=== PATIENT | female | born 1990 | race Caucasian/White ===

== ENCOUNTER 2021-08-04 19:56 | Emergency (ER) | payer OTHER ==
[~2021-08-04 19:56] MED LIST: BACTRIM DS TAB1 EACH PO; CEPHALEXIN500 M1 PO; IBUPROFEN800 MG PO
[2021-08-04 20:52] LABS: HEMOGLOBIN 13.7 gm/dl (12.3-15.3); RED BLOOD COUNT 4.96 M/UL (4.00-5.10); WHITE BLOOD COUNT 14.9 K/UL (4.5-11.0)
[2021-08-04 21:16] LABS: BUN/CREATININE RATIO 8 (0-10)
== END 2021-08-05 00:20 | disposition home or self-care (01) ==
LOC: ER1 19:56
PROVIDERS: Nurse Practitioner
DX: L02.01 Cutaneous abscess of face (principal); R00.0 Tachycardia, unspecified; F17.290 Nicotine dependence, other tobacco product, uncomplicated; Z88.0 Allergy status to penicillin
CPT/HCPCS: 10060; 80053; 85025; 87070; 87077; 87186; 87205; 96374; 99283; J1885

== ENCOUNTER 2021-08-06 18:10 | Emergency (ER) | payer OTHER | END 2021-08-06 19:10 | disposition home or self-care (01) | LOC: ER1 18:10 | DX: Z48.817 Encounter for surgical aftercare following surgery on the skin and subcutaneous tissue (principal); F17.200 Nicotine dependence, unspecified, uncomplicated; Z88.0 Allergy status to penicillin | CPT/HCPCS: 99282 ==

== ENCOUNTER 2021-08-08 18:53 | Emergency (ER) | payer OTHER | END 2021-08-08 19:13 | disposition home or self-care (01) | LOC: ER1 18:53 | DX: Z48.817 Encounter for surgical aftercare following surgery on the skin and subcutaneous tissue (principal); F17.290 Nicotine dependence, other tobacco product, uncomplicated; Z88.0 Allergy status to penicillin | CPT/HCPCS: 87070; 87077; 87186; 87205; 99283 ==